=== PATIENT | male | born 1995 | race Asian ===

== ENCOUNTER 2020-12-02 10:39 | Outpatient (CLI) | payer OTHER ==
[2020-12-02 11:30] VITALS: BP 124/79
--- NOTE | 2020-12-02 11:30 | SLEEP CARE CONSULTATION ---
Information from patient questionnaire entered by Evie Harley. I have reviewed and concur with the information entered by Evie Harley. This document represents the service I personally performed and the decisions made by me, Tammy Hurley ARNP. History of Present Illness Service Date and Time: 12/02/2020 1039 Reason for Visit: New patient Chief Complaint: reports: Insomnia, Unrefreshed sleep, Snoring, Excessive daytime sleepiness, Observed pauses in breathing (per his ), Fatigue Date of Onset: 3 years Usual bedtime: 10pm - 12am Time it takes to fall asleep: 30-60 minutes Snores at night: Yes Observed to quit breathing while asleep: Yes Sleeps alone due to snoring: Yes Number of times waking at night: 1 Reasons for waking at night: reports: Snoring, Bathroom. denies: Choking, Gasping for air Toss, Turn, or Twitch while sleeping: Yes Recalls having dreams: Yes Usually gets out of bed at: 3:45 am; on weekends 0900 or 1000 Feels refreshed in the morning: No Morning headache: Yes (most mornings lasting 45 minutes to 1.5 hours) Sleepy or fatigued during the day: Yes Ever fallen asleep while driving: Yes (drowsy driving, no accidents) Takes day naps: Yes (on weekends about 1-3 hours, some days during lunchtimes) Dreams during day naps: Yes Prior sleep studies: No Additional HPI information: I had the pleasure of seeing JOYCE JIMENES today regarding the possibility of him having a sleep disorder. His current complaints are snoring, insomnia, excessive daytime sleepiness and fatigue. He has trouble sleeping some days. He snores and grinds his teeth. He has had some fatigue during the day and felt some crawling sensations in his legs. He is tired most days during the day and drinking a lot of coffee to "stay up" while working. 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 Patient is and lives in [place]. Have you smoked in the past 12 months: No (he vapes) Cigarettes per day (20/pack): 10 Years of smokin Quit date: 2019 Smoking Pack Years: 3.5 Alcohol use: Yes Alcohol amount and frequency: 1-2 drinks occassionally Caffeine use: Yes Caffeine amount and frequency: 1-2 cups day Family History Family history of sleep disordered breathing: Yes (grandparents, mom, dad, eldest brother, sister) Family Hx Sleep Apnea: Mother: Snoring, Father: Snoring, Sibling: Snoring, Grandparent: Snoring Allergies and Home Medications Drug allergies reviewed: Yes (NKDA) Home medication list reviewed: Yes (he cannot remember names) Allergy and home medication list: bp medication migraine medication pills and cream for rash Review of Systems Weight gain over past 5 years: 25 Cardiovascular: reports: high blood pressure, chest pain, irregular heart rate or pulse Gastrointestinal: reports: heartburn, nausea Neurological: reports: headaches. denies: head trauma Psychiatric: reports: anxiety Ear/Nose/Throat: reports: nasal congestion, sinus problems, dry mouth/throat, wisdom teeth removed. denies: injury to nose, tonsillectomy Musculoskeletal: reports: joint pain, neck pain, back pain, muscle pain or cramping Immunologic: reports: rash, itching Physical Exam Blood Pressure: 124/79 Cuff size: wrist Heart Rate: 95 O2 Saturation: 98 Height: 5 ft 10 in Weight: 190 lb Body Mass Index: 27.2 BMI Classification: Overweight Neck circumference: 15.75 (inches) Nostrils: patent to airflow Turbinates: swollen Septum: midline Mouth and throat: narrow oropharynx Soft palate: long Uvula visualization: 25% Mallampati Class III Tongue: enlarged in size with teeth kumar on lateral edges Tonsils: 2+ Heart: regular rate and rhythm Lungs: clear bilaterally Impression and Plan 1. Suspected Obstructive Sleep Apnea-Hypopnea Syndrome, as suggested by a history of loud and irregular snoring, observed cessation of breath while asleep, morning headache, unrefreshed sleep, cognitive impairment, and excessive daytime sleepiness. Narrow oropharynx and obesity are common predisposing factors for obstructive sleep apnea-hypopnea syndrome. I recommend proceeding to polysomnography to confirm the diagnosis and to assess severity. If the patient has significant sleep disordered breathing, a manual CPAP titration study will also be performed to find the optimal treatment pressure. I informed the patient of what the sleep studies involve and after some discussion, obtained agreement to proceed. The pathophysiology of obstructive sleep apnea-hypopnea syndrome was discussed with the patient and health risks of cardiovascular and cerebrovascular disease if not treated. [facility] brochure for obstructive sleep apnea-hypopnea syndrome given and reviewed. 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 Patient agreed to plan. [facility] drowsy driving brochure given. * Schedule polysomnography +- manual CPAP titration study and return in 1-2 weeks after the study to discuss result and initiate therapy. * Avoid long distance driving or driving when feeling sleepy. * Avoid alcohol, sedative and muscle relaxant around bedtime. * Attempt to lose weight. * Review instructions provided by trained office staff on how to prepare for the sleep study. * Return for follow-up after sleep study completed. Counseling Topics: Weight loss health impact Visit Type: In Office Time Spent with Patient (minutes): 30 Provider Statement: I spent 100% of the Face to Face Visit with the patient with greater than 50% spent counseling the patient and coordination of care.
== END 2020-12-02 10:40 | disposition home or self-care (01) ==
LOC: SC 10:39
PROVIDERS: ATTEND Nurse Practitioner Family
DX: R06.83 Snoring (principal); R06.81 Apnea, not elsewhere classified; R51.9 Headache, unspecified; G47.10 Hypersomnia, unspecified; G47.8 Other sleep disorders; R41.89 Other symptoms and signs involving cognitive functions and awareness; R53.83 Other fatigue; F17.290 Nicotine dependence, other tobacco product, uncomplicated; E66.3 Overweight; Z68.27 Body mass index [BMI] 27.0-27.9, adult
CPT/HCPCS: 99203; 99212

== ENCOUNTER 2020-12-16 11:48 | Outpatient (CLI) | payer OTHER | END 2020-12-16 11:49 | disposition home or self-care (01) | LOC: SC 11:48 | PROVIDERS: ATTEND Nurse Practitioner Family | DX: G47.33 Obstructive sleep apnea (adult) (pediatric) (principal); R09.02 Hypoxemia | CPT/HCPCS: 95806 ==

== ENCOUNTER 2020-12-29 10:59 | Outpatient (CLI) | payer OTHER ==
[2020-12-29 11:48] VITALS: BP 114/78
--- NOTE | 2020-12-29 11:48 | SLEEP CARE CONSULTATION ---
Information from patient questionnaire entered by Evie Harley. I have reviewed and concur with the information entered by Evie Harley. This document represents the service I personally performed and the decisions made by me, Tammy Hurley ARNP. History of Present Illness Service Date and Time: 12/29/2020 1059 Initial [place] Sleepiness Scale score: 21 (in 2020) Current [place] Sleepiness Scale score: 21 Additional HPI information: JOYCE JIMENES returns for follow up and results of the recently performed home sleep study. He was found to have mild obstructive sleep apnea with an average AHI of 9.7 and naz of 71%. I explained the pathophysiology behind obstructive sleep apnea. We then spent quite a bit of time discussing different treatment options. For mild obstructive sleep apnea, surgery and oral appliance are alternatives to nasal CPAP therapy but in moderate or severe cases, nasal CPAP is the most effective and reliable treatment. Because apnea is primarily in supine position, then positional management therapy could be effective. Methods discussed such as positioning with pillows, using a T-shirt with tennis balls in the back, and shown commercial products that have a pillow format on back to prevent supine sleep. I reviewed the impact of weight changes on sleep apnea and strongly recommended losing weight. After some discussion, the patient opted to go with the nasal CPAP therapy. Nasal autoCPAP set at 4-15 cmH20 will be ordered with rationale explained. A manual titration study will be ordered if unable to find optimal pressure with office adjustments. I explained how CPAP machine works with sample devices Respironics Dreamstation and ResWhimseybox [id number] and what to expect when using the machine. Using CPAP every night in order to get used to it was emphasized. Patient advised to put CPAP mask on before getting into bed so as not to fall asleep without CPAP. To assist acclimation to CPAP use, it could also be used for a short time during day while reading or watching TV. The patient was instructed to call the CPAP supplier to discuss any mechanical problem that may occur. If the mask given is uncomfortable or is difficult to keep on through the night even with adjustment, contact the CPAP supplier as many will replace with another mask style if notified before 30 days. If snoring or perceives is not getting enough air or too much air from the machine, notify this office. [facility]AS patient education PAP tips reviewed and given to patient. Patient counseled not drink alcohol less than 4 hours before bedtime as it can increase snoring and apnea. Patient was cautioned about risks of drowsy driving until sleepiness symptoms resolve. Sleep Study - Results Type of Sleep Study: Home sleep study Prior sleep studies: No Polysomnography/Home Sleep Study results: Physician Impression: The quality of the study is fair due to partial loss of pulse oximetry signal. The length of the study is adequate (> 240 minutes). Please also see the tabulated and graphic data. 1. Obstructive Sleep Apnea-Hypopnea (ICD-10 G47.33), mild, with an AHI of 9.7/hr and naz SaO2 of 71%. During the study, the patient had 32 apneas (32 obstructive, 0 central, 0 mixed) and 14 hypopneas. The longest episode lasted 56.5 seconds. The patient only slept supine during this study(supine AHI was 9.7 and non-supine, 0.00). 2. Hypoxemia (ICD-10 R09.02), moderate, with the lowest oxygen saturation of 71 % and 114.9 minutes with SaO2 under 90%. Baseline oxygen saturation was normal (Average oxygen saturation was 93%). Allergies and Home Medications Home medication list reviewed: Yes (no changes) Review of Systems Review of systems same as previous: Yes (no changes) Physical Exam Blood Pressure: 114/78 Cuff size: wrist Heart Rate: 102 O2 Saturation: 97 Height: 5 ft 10 in Weight: 195 lb Body Mass Index: 27.9 BMI Classification: Overweight Impression and Plan 1. Obstructive Sleep Apnea-Hypopnea Syndrome, mild, with lowest oxygen saturation of 71%. Obviously this is the cause of the patients symptoms of unrefreshed sleep, and excessive daytime sleepiness. Positive pressure therapy could benefit his overall health and reduce risks of cardiovascular and cerebrovascular adverse events. As mentioned above, the patient will be started on nasal autoCPAP therapy with pressure set at 4-15 cmH2O. A manual titration study will be completed if unable to find optimal treatment pressure with office adjustments. Compliance guidelines also reviewed. A copy of compliance guidelines will be given for reference at check out. Because the apnea is more severe supine, I instructed to avoid sleeping supine using pillow positioning until able to start CPAP use. 2. Hypoxemia, moderate, with the lowest oxygen saturation of 71 % and 114.9 minutes with SaO2 under 90%. His baseline oxygen saturation was normal with an average oxygen saturation at 93%. There was some partial pulse oximetry loss during the study, unsure how accurate the saturation measurements were during the night overall. * Nasal auto CPAP therapy, pressure at 4-15 cm H2O. * Attempt to lose weight. * Avoid alcohol consumption near bedtime. * Avoid supine sleep until using CPAP. * The patient is again cautioned about driving until sleepiness completely resolves. * Return one month after CPAP obtained. I will assess response to therapy and compliance at that time. Counseling Topics: Weight loss health impact Visit Type: In Office Time Spent with Patient (minutes): 21 Provider Statement: I spent 100% of the Face to Face Visit with the patient with greater than 50% spent counseling the patient and coordination of care.
== END 2020-12-29 11:00 | disposition home or self-care (01) ==
LOC: SC 10:59
PROVIDERS: ATTEND Nurse Practitioner Family
DX: G47.33 Obstructive sleep apnea (adult) (pediatric) (principal); R09.02 Hypoxemia; E66.3 Overweight; Z68.27 Body mass index [BMI] 27.0-27.9, adult
CPT/HCPCS: 99212; 99213